=== PATIENT | female | born 1950 | race Hispanic/Latino ===

== ENCOUNTER 2024-11-23 18:39 | Emergency (ER) | payer MEDICARE ==
[~2024-11-23] VITALS: Ht 157.5 cm; Wt 72.6 kg
[2024-11-23 18:41] VITALS: TEMP 98.2
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
[2024-11-23] MEDS: ketOROlac 30MG VIAL (30MG/ML) IM ONE (20:06)
[2024-11-23 20:10] VITALS: BP 174/84; PULSE 77; RESP 18; O2SAT 99
--- NOTE | 2024-11-23 20:49 | NUR ---
SPLINT TO L UPPER EXTREMITY APLIED. LONG POSTERIOR SPLINT AND ARM SLING. PT NEUROVASCULAR INTACT PRE AND POST SPLINT APPLICATION
--- NOTE | 2024-11-24 08:19 | HMCIMG ---
LEFT SHOULDER RADIOGRAPHS - 2-3 VIEWS INDICATION: Pain COMPARISON: None FINDINGS: No evidence for acute fracture or dislocation. Acromioclavicular and glenohumeral alignments are well maintained. Visible portions of the left clavicle are intact. IMPRESSION: No evidence for fracture or dislocation.
--- NOTE | 2024-11-24 08:21 | HMCIMG ---
LEFT ELBOW RADIOGRAPHS - 3 VIEWS INDICATION: Pain COMPARISON: None FINDINGS: AP, lateral, and oblique views. No fracture or dislocation identified. No significant joint effusion is present. No radiopaque foreign body noted. IMPRESSION: No evidence for fracture or dislocation.
== END 2024-11-23 20:50 | disposition home or self-care (01) ==
LOC: EDH 18:39
DX: S50.312A Abrasion of left elbow, initial encounter (principal); Z85.3 Personal history of malignant neoplasm of breast; Z79.899 Other long term (current) drug therapy; V89.2XXA Person injured in unspecified motor-vehicle accident, traffic, initial encounter; Y93.I9 Activity, other involving external motion; Y92.89 Other specified places as the place of occurrence of the external cause; Y99.8 Other external cause status
CPT/HCPCS: 99284; 29105; 73080; 73030; 96372; J1885